=== PATIENT | female | born 1960 | race Caucasian/White ===

== ENCOUNTER 2025-02-07 06:12 | Day surgery (SDC) | payer MEDICARE, OTHER, SELFPAY ==
--- NOTE | 2025-02-07 | PATH_ITS ---
[facility] Accession Number: [id number] No. of containers..01 Tissue . 01 Material submitted: . foot - LEFT FOOT . 01 Clinical history: . SOFT TISSUE MASS . 01 Diagnosis: SOFT TISSUE, LEFT FOOT: Pillai's neuroma. [facility] 02/15/2025 1041 Local . 01 Electronically signed: . Zoraida Martines MD, Pathologist NPI- [id number] . 01 Gross description: . LEFT FOOT: Received in formalin are multiple fragment of hicks soft tissue measuring 1.5 x 1.5 x 0.4 cm in aggregate. Tissue is inked. Specimen is sectioned and submitted in its entirety in 2 cassettes. /JUVE 02/13/20252208 Local . 01 Pathologist provided ICD-10: G57.62 . 01 CPT . 693292 Specimen Comment: A courtesy copy of this report has been sent to [facility] Performed at: [address] [address], [place], [place] [id number] MD Johnnie Guadarrama MD Phone: [phone]
--- NOTE | 2025-02-07 06:33 | PM.HP.1 ---
History of Present Illness History of Present Illness Chief complaint: [facility] [place] Narrative: 64 year old female here for pain on both feet. Onset of symptoms is two months ago and has progressively worsened. She reports pain in her feet when sitting and stepping down, accompanied by tingling sensations and occasional dropping feeling in the entire bottom of her feet. Zulma's foot pain is impacting her daily activities, making it challenging to stand for extended periods and limiting her ability to exercise. She rarely takes Advil for pain due to liver concerns (fatty liver) and occasionally uses Tylenol. The patient reports a history of osteoarthritis, diagnosed by a mixer and scaler, which may be contributing to her foot issues. The most notable symptom is a nodule on the outer aspect of left foot. In terms of lifestyle factors, Zulma mentions that she has not consumed alcohol in two years, which is relevant given her history of fatty liver. Patient denies n/v/f/c/sob/cp. [facility] Medical History (Updated 01/31/25 @ 14:49 by Amairani Booker RN) Osteoarthritis Fatty liver Bladder cancer Raynaud's disease HTN (hypertension) Arthritis Foot pain Surgical History (Updated 01/31/25 @ 14:49 by Amairani Booker RN) Hx of carpal tunnel repair History of hysterectomy History of bladder surgery (10/2024) Social History alcohol intake: former Meds Home Medications and Allergies Home Medications ?Medication ?Instructions ?Recorded ?Confirmed ?Type estradiol 0.5 mg tablet 0.5 mg PO DAILY 01/31/25 01/31/25 History felodipine 5 mg tablet,extended 5 mg PO DAILY 01/31/25 01/31/25 History release 24 hr lisinopril 20 mg tablet 20 mg PO DAILY 01/31/25 01/31/25 History Allergies Allergy/AdvReac Type Severity Reaction Status Date / Time codeine Allergy Verified 01/31/25 14:45 erythromycin base Allergy Verified 01/31/25 14:45 Exam Extrem Other: Left fifth metatarsal head: 2 cm^2 nodule firm, circular, unilocular, and stationary. Assessment & Plan Assessment & Plan narrative: 1. Left foot soft tissue mass Patient seen and evaluated. Surgical plan: left foot soft tissue mass removal. Risks and benefits of the procedure discussed with all questions answered to patient's satisfaction. Reviewed potential complications that may include but not limited to the following: DVT, failure to resolve all symptoms, infection, nerve injury, bleeding, recurrence, or wound. Reviewed surgical technique and general aftercare protocols. All questions answered to patient's satisfaction with no guarantees made. Patient verbalized understanding and agreed with surgical plan. RTC for post-op. Time-Based Coding :: [TOTAL MINUTES] spent with patient and on the chart (including review of chart, obtaining history, exam, reviewing outside data, placing orders, documenting exam and treatment plan, and counseling patient) on [DATE].
[2025-02-07 07:09] VITALS: BP 152/73; PULSE 60; RESP 16; TEMP 36.2; O2SAT 100; BMI 25.7
--- NOTE | 2025-02-07 07:33 | PM.PREOP ---
Pre-operative Note Interval Note History & Physical reviewed/Exam performed by Physician: Yes Changes to H&P: No
[2025-02-07] MEDS: CEFAZOLIN 2 GM/100 ML PREMIX 100 ML IV (07:49)
--- NOTE | 2025-02-07 08:17 | SUR.OPER ---
Supine on padded OR bed, head on pillow, arms secured on padded arm boards at <90 degrees abduction, legs uncrossed, safety belt at waist, tape over blanket over lower right leg, left leg draped free wigh gel bump under left buttock and towel bump under left leg and thigh.
[2025-02-07] MEDS: BUPIVACAINE 0.25% (PF) VIAL 30 ML INJ (08:31)
[2025-02-07] MEDS: LIDOCAINE 1% 20 ML INJ (08:32)
[2025-02-07 09:05] VITALS: BP 141/62; PULSE 69; RESP 12; TEMP 36.5; O2SAT 96
[2025-02-07 09:15] VITALS: BP 143/65; PULSE 61; RESP 12; TEMP 36.5; O2SAT 97
[2025-02-07 09:25] VITALS: BP 140/64; PULSE 70; RESP 12; TEMP 36.4; O2SAT 97
[2025-02-07] MEDS: OXYCODONE IR 5 MG TABLET PO (09:42)
[2025-02-07] MEDS: ACETAMINOPHEN 325 MG TABLET 650 MG PO (09:42)
[2025-02-07 09:55] VITALS: BP 151/75; PULSE 66; RESP 16; TEMP 36.4; O2SAT 96
--- NOTE | 2025-02-21 11:31 | P.OP_ITS ---
Operative Date/Time/Diagnoses Date of procedure: 02/07/25 Time of procedure: 07:45 Pre-op diagnosis: 1. Left foot soft tissue mass 2. Left foot tailor's bunion Post-op diagnosis: same (1. Left foot soft tissue mass, neuroma; 2. Left foot tailor's bunion) Procedure & Clinicians Procedure: 1. Left foot excision of soft tissue mass, neuroma 2. Left foot ostectomy, tailor's bunion Same procedure(s) as scheduled: Yes (1. Left foot excision neuroma, single, 04646; 2. Left foot ostectomy, [id number]) Indications: 1. Painful left foot Surgeon: Mitchell Valenzuela Click Yes if Unassisted: Yes Anesthesia Type: Sedation and Local Operative Notes Findings: 1. Thickened and firm nodule to lateral foot 2. Bony eminence to fifth metatarsal head Closure Type: primary Specimen(s): other (1. Left foot soft tissue mass) Applied: none Estimated Blood Loss (mL): 10 Blood products transfused: none Procedure in detail: Patient was identified and brought into operating room on [facility] and transferred onto operating table. Patient was in supine position. Local anesthesia was administered using 8 cc 1% lidocaine plain. Ankle tourniquet was applied and set to 200 mmHg. Left foot was prepped and draped is usual sterile fashion followed by official timeout with surgical team all in agreement. Attention was directed to the raised lump on the left lateral forefoot. A linear incision was made using a #15 scalpel. Dissection was deepened from skin down to the base of the lesion. A scissor was used to resect the thickened soft tissue nodule with the entire aggregate measuring approximately 1.5 x 1.5 x 0.5 cm. Specimen was passed off and sent to pathology for gross evaluation. Surrounding tissue appeared to be within normal limits. Attention was directed to the left fifth metatarsal head, a separate procedure. A linear incision was made over the capsule and periosteum of distal bone and joint, which was sharply reflected. Prominent fifth metatarsal head was identified, and a sagittal saw on power was used to resect the osseous structur e. The cut bone was smoothed down using a rasp. Surgical site was irrigate using copious saline. Tourniquet was released for a total of 17 minutes. 9 cc of 0.25% marcaine plain was administered. The capsule was closed using a 3-0 vicryl, and the incision was closed using a 3-0 nylon. Procedure site was washed and dried. Sterile dressing using iodine soaked Adaptic, gauze, abdominal pad, Kerlix, and RADHA bandage was applied, and foot was place into a surgical shoe. Complications: none Post-operative Condition: stable Disposition: same day surgery Plan for aftercare: NWB to surgical limb, keep dressing clean dry and intact, and elevate above heart and ice intermittently.
== END 2025-02-07 10:06 | disposition home or self-care (01) ==
PROVIDERS: PCP Family Medicine; Referring Provider Podiatrist Foot & Ankle Surgery; Visit Provider Podiatrist Foot & Ankle Surgery
PROC: (CPT 28080; principal; 2025-02-07 07:45)
DX: G57.62 Lesion of plantar nerve, left lower limb (principal); M21.622 Bunionette of left foot; M19.90 Unspecified osteoarthritis, unspecified site; K76.0 Fatty (change of) liver, not elsewhere classified
CPT/HCPCS: 28080; 28110; 82962; J0690; J2405; J2704; J3010